=== PATIENT | male | born 1985 | race Hispanic/Latino ===

== ENCOUNTER 2020-05-15 16:11 | Emergency (ER) | payer OTHER ==
[~2020-05-15] VITALS: Ht 177.8 cm; Wt 88.9 kg
[2020-05-15] MEDS ORDERED: MAGNESIUM/ALUMINUM/SIMETHICONE 30 ML UDC PO ONE ×2 (16:45→18:00)
[2020-05-15] MEDS ORDERED: LIDOCAINE VISC 2% SOLN 15 ML UDC PO ONE ×3 (16:45→18:00)
[2020-05-15] MEDS ORDERED: BELLADONNA ALK/PHENOBARBITAL 5 ML UDC PO ONE ×2 (16:45→18:00)
--- NOTE | 2020-05-15 16:53 | Emergency Department Note ---
History of Present Illnes History of Present Illness Chief Complaint: Abdominal Complaints History of Present Illness This is a 34 year old male PATIENT IN FROM HOME WITH COMPLAINTS OF EPIGASTRIC PAIN AFTER EATING SPICY FOOD LAST NIGHT; STATES THAT HE TOOK A PROTONIX BUT IT WORE OFF QUICKLY; PATIENT STATES THAT THE SAME THING HAPPENED IN AUGUST WHEN HE WAS GIVEN THE RX FOR PROTONIX. HE WAS SEEN AT THE CLINIC THIS MORNING AND GIVEN AN RX FOR PEPCID, HE TOOK ONE DOSE AND IT HAS NOT HELPED YET. Historian: Patient Arrival Mode: Car Quality Audit Representative Required: Yes Onset (how long ago): hour(s) Location: [facility] ABD Quality: BURNING PAIN Radiation: Reports non-radiation Severity: moderate Onset quality: gradual Timing of current episode: constant Progression: unchanged Chronicity: recurrent Context: Denies recent illness Relieving factors: none Exacerbating factors: none Associated symptoms: Reports denies other symptoms (JAKE CHUNG MD) Historian: Patient, Family Member (DIALLO LEIGH DO) Past Medical/Family History Physician Review I have reviewed the patient's past medical and family history. Any updates have been documented here. (JAKE CHUNG MD) Past Medical History Recent Fever: No Clinical Suspicion of Infectio: No New/Unexplained Change in Ment: No Past Medical History: GERD Past Surgical History: None (JAKE CHUNG MD) Recent Fever: No Clinical Suspicion of Infectio: No New/Unexplained Change in Ment: No (DIALLO LEIGH DO) Social History Smoking Cessation: Never Smoker Alcohol Use: Social Any Illegal Drug Use: No TB Exposure/Symptoms: No Physically hurt or threatened: No (JAKE CHUNG MD) Family History Family history of heart diseas: No (JAKE CHUNG MD) Other Any Pre-Existing Lines (PICC,: No (JAKE CHUNG MD) Review of Systems Review of Systems Constitutional: Reports no symptoms EENTM: Reports no symptoms Cardiovascular: Reports no symptoms Respiratory: Reports no symptoms Gastrointestinal: Reports as per HPI, Reports abdominal pain Genitourinary: Reports no symptoms Musculoskeletal: Reports no symptoms Integumentary: Reports no symptoms Neurological: Reports no symptoms Psychological: Reports no symptoms Endocrine: Reports no symptoms Hematological/Lymphatic: Reports no symptoms (JAKE CHUNG MD) Physical Exam Related Data Allergies: Coded Allergies: No Known Allergies (Unverified , 05/15/20) Triage Vital Signs Vital Signs Date Time Temp Pulse Resp B/P (MAP) Pulse Ox O2 Delivery O2 Flow Rate FiO2 05/15/20 16:16 98.3 86 18 129/84 98 Room Air (JAKE CHUNG MD) Triage Vital Signs Vital Signs Date Time Temp Pulse Resp B/P (MAP) Pulse Ox O2 Delivery O2 Flow Rate FiO2 05/15/20 16:16 98.3 86 18 129/84 98 Room Air Vital signs reviewed: Yes (DIALLO LEIGH DO) Physical Exam CONSTITUTIONAL HENT EYES NECK PULMONARY CARDIOVASCULAR GASTROINTESTINAL GENITOURINARY SKIN MUSCULOSKELETAL NEUROLOGICAL PSYCHOLOGICAL (JAKE CHUNG MD) Constitutional: Present well-developed, Present well-nourished HENT: Present normocephalic, Present atraumatic, Present oropharynx clear/moist, Present nose normal HENT L/R: Present left ext ear normal, Present right ext ear normal Eyes: Reports PERRL, Reports conjunctivae normal Neck: Present ROM normal Pulmonary: Present effort normal, Present breath sounds normal Cardiovascular: Present regular rhythm, Present heart sounds normal, Present capillary refill normal, Present normal rate Abdominal: Present soft, Present tender (RLQ) Genitourinary: Present exam deferred Skin: Present warm, Present dry Musculoskeletal: Present ROM normal Neurological: Present alert, Present oriented x 3, Present no gross motor or sensory deficits Psychological: Present mood/affect normal, Present judgement normal (DIALLO LEIGH DO) Results Laboratory Lab results reviewed: Yes (DIALLO LEIGH DO) Imaging Imaging results reviewed: Yes Impressions [place] [id number] Patient Name: KRYS HERNANDEZ MR #: [id number] : 1985 Age/Sex: 34/M Req #: [id number] Adm Physician: Ordered by: DIALLO LEIGH DO Report #: [id number] Location: Room/Bed: Procedure: [id number] CT/CT ABDOMEN/PELVIS W Exam Date: Exam Time: REPORT STATUS: Signed EXAM: CT Abdomen and Pelvis WITH contrast INDICATION: Epigastric and right lower quadrant pain. COMPARISON: None. TECHNIQUE: Abdomen and pelvis were scanned utilizing a multidetector helical scanner from the lung base to the pubic symphysis after administration of IV contrast. Coronal and sagittal reformations were obtained. Routine protocol was performed. Scan was performed during portal venous phase. IV CONTRAST: 100 cc of Isovue 370 ORAL CONTRAST: None COMPLICATIONS: None RADIATION DOSE: Total DLP: 387.9 mGy*cm Estimated effective dose: (DLP x 0.015 x size factor) mSv CTDIvol has been reviewed. It is below the limits set by the Radiation Protocol Committee (RPC). FINDINGS: LINES and TUBES: None. LOWER THORAX: Unremarkable HEPATOBILIARY: No evidence of focal lesion. No biliary ductal dilation. GALLBLADDER: No radio-opaque stones or sludge. No wall thickening. SPLEEN: No splenomegaly. PANCREAS: No focal masses or ductal dilatation. ADRENALS: No adrenal nodules KIDNEYS/URETERS: Kidneys enhance symmetrically. No evidence of hydronephrosis, solid mass, or stone. GI TRACT: No evidence of bowel obstruction. Apparent mild wall thickening in jejunal loops. Appendix is normal. PELVIC ORGANS/BLADDER: Unremarkable. LYMPH NODES: No lymphadenopathy. VESSELS: Unremarkable. PERITONEUM / RETROPERITONEUM: No free air or fluid. Mild mesenteric stranding. BONES AND SOFT TISSUES: Unremarkable. CONCLUSION: Mild jejunal wall thickening, which may represent decompression versus enteritis, which may be infectious or inflammatory. There is mild stranding in the mesentery, which may be secondary to the jejunal inflammation versus mesenteric panniculitis. No evidence of lymphadenopathy. Recommend clinical correlation. Signed by: Dr. Valerie Rothman MD on 05/15/2020 6:30 PM Dictated By: VALERIE ROTHMAN MD 29 Transcribed By: CYNDY on 05/15/201829 COPY TO: DIALLO LEIGH DO~ (DIALLO LEIGH DO) Assessment & Plan Medical Decision Making MDM LIKELY GASTRITIS BUT TENDER IN [facility]/RUQ - CHECK CBC, CHEM, AMYLASE/LIPASE - R/O PANCREATITIS, ELEVATED LFT'S TO SUGGEST CHOLECYSTITIS/CHOLEDOCHOLITHIASIS, ELECTROLYTE ABNL (JAKE CHUNG MD) MDM Diff Dx : pancreatitis, gallbladder pathology, perforated viscus, ACS, and appendicitis (DIALLO LEIGH DO) Reassessment Reassessment GI COCKTAIL, IVF'S, IV PROTONIX GIVEN, LABS PENDING - REPORT TO ONCOMING ER Jovita BARNETT TO F/U AND DISPO (JAKE CHUNG MD) Assessment & Plan Final Impression: (1) Abdominal pain (JAKE CHUNG MD) Depart Disposition: HOME, SELF-CARE Last Vital Signs Date Time Temp Pulse Resp B/P (MAP) Pulse Ox O2 Delivery O2 Flow Rate FiO2 05/15/20 16:16 98.3 86 18 129/84 98 Room Air (JAKE CHUNG MD) Medications in the ED Magnesium Aluminum Silicate 30 ml ONCE ONCE PO ; Start 05/15/20 at 16:45; Stop 05/15/20 at 16:46; Status UNV Belladonna Alkaloids/ Phenobarbital 10 ml ONCE ONCE PO ; Start 05/15/20 at 16:45; Stop 05/15/20 at 16:46; Status UNV Lidocaine HCl 10 ml ONCE ONCE PO ; Start 05/15/20 at 16:45; Stop 05/15/20 at 16:46; Status UNV Magnesium Aluminum Silicate 10 ml ONCE ONCE PO ; Start 05/15/20 at 17:30; Stop 05/15/20 at 17:31 (JAKE CHUNG MD) JAKE CHUNG MD May 15, 2020 16:53 DIALLO LEIGH DO May 15, 2020 17:54
[2020-05-15] MEDS ORDERED: PANTOPRAZOLE 40 MG 10ML VIAL IV STA (17:18)
[2020-05-15] MEDS ORDERED: ONDANSETRON HCL INJ 2MG/ML 2ML 2 MG/ML VIAL IV STA (17:18)
[2020-05-15] MEDS ORDERED: SODIUM CHLORIDE 0.9% 1000ML 1,000 ML IV STA (17:18)
[2020-05-15] MEDS ORDERED: MAALOX/LIDOCAINE/BENADRYL/NYST 30 ML BTL PO ONE (17:30)
[2020-05-15 17:36] LABS: BASOPHILS % 0.2 % (0.0-1.0); EOSINOPHILS % 0.1 % (0.0-6.0); HEMATOCRIT 43.7 % (38.2-49.6); HEMOGLOBIN 14.4 g/dL (14.0-18.0); LYMPHOCYTES # (AUTO) 1.2 (1.0-3.2); LYMPHOCYTES % 8.5 % (18.0-39.1); MEAN CORPUSCULAR HEMOGLOBIN 28.2 pg (28-32); MEAN CORPUSCULAR VOLUME 85.5 fL (81-99); MONOCYTES # (AUTO) 0.9 (0.2-0.8); MONOCYTES % 6.8 % (4.4-11.3); NEUTROPHILS # (AUTO) 11.6 (2.1-6.9); NEUTROPHILS % 83.9 % (38.7-80.0); PLATELET COUNT 243 x10e3/uL (140-360); RED BLOOD COUNT 5.11 x10e6/uL (4.3-5.7)
[2020-05-15 17:47] LABS: INR 0.98; PROTHROMBIN TIME 13.5 seconds (11.9-14.5)
[2020-05-15 17:48] LABS: PARTIAL THROMBOPLASTIN TIME 29.1 seconds (23.8-35.5)
[2020-05-15 17:56] LABS: ALANINE AMINOTRANSFERASE 61 IU/L (0-55); ALBUMIN 4.8 g/dL (3.5-5.0); ALBUMIN/GLOBULIN RATIO 1.4 (0.8-2.0); ALKALINE PHOSPHATASE 83 IU/L (40-150); AMYLASE 49 U/L (25-125); ANION GAP 13.9 mmol/L (8-16); BLOOD UREA NITROGEN 12 mg/dL (7-26); BUN/CREATININE RATIO 12 (6-25); CALCIUM 9.6 mg/dL (8.4-10.2); CARBON DIOXIDE 27 mmol/L (22-29); CHLORIDE 102 mmol/L (98-107); CREATINE KINASE 80 IU/L (30-200); CREATININE, SERUM 1.01 mg/dL (0.72-1.25); EST GLOMERULAR FILTRATION RATE > 60 ML/MIN (60-); GLUCOSE 102 mg/dL (74-118); LIPASE 10 U/L (8-78); POTASSIUM 3.9 mmol/L (3.5-5.1); SODIUM 139 mmol/L (136-145)
--- NOTE | 2020-05-15 18:02 | NUR ---
Pt to CT scan.
[2020-05-15] MEDS ORDERED: MORPHINE SULFATE INJ 4 MG/ML INJ 1ML IV STA (18:29)
--- NOTE | 2020-05-15 18:33 | Diagnostic Imaging Report ---
EXAM: CT Abdomen and Pelvis WITH contrast INDICATION: Epigastric and right lower quadrant pain. COMPARISON: None. TECHNIQUE: Abdomen and pelvis were scanned utilizing a multidetector helical scanner from the lung base to the pubic symphysis after administration of IV contrast. Coronal and sagittal reformations were obtained. Routine protocol was performed. Scan was performed during portal venous phase. IV CONTRAST: 100 cc of Isovue 370 ORAL CONTRAST: None COMPLICATIONS: None RADIATION DOSE: Total DLP: 387.9 mGy*cm Estimated effective dose: (DLP x 0.015 x size factor) mSv CTDIvol has been reviewed. It is below the limits set by the Radiation Protocol Committee (RPC). FINDINGS: LINES and TUBES: None. LOWER THORAX: Unremarkable HEPATOBILIARY: No evidence of focal lesion. No biliary ductal dilation. GALLBLADDER: No radio-opaque stones or sludge. No wall thickening. SPLEEN: No splenomegaly. PANCREAS: No focal masses or ductal dilatation. ADRENALS: No adrenal nodules KIDNEYS/URETERS: Kidneys enhance symmetrically. No evidence of hydronephrosis, solid mass, or stone. GI TRACT: No evidence of bowel obstruction. Apparent mild wall thickening in jejunal loops. Appendix is normal. PELVIC ORGANS/BLADDER: Unremarkable. LYMPH NODES: No lymphadenopathy. VESSELS: Unremarkable. PERITONEUM / RETROPERITONEUM: No free air or fluid. Mild mesenteric stranding. BONES AND SOFT TISSUES: Unremarkable. CONCLUSION: Mild jejunal wall thickening, which may represent decompression versus enteritis, which may be infectious or inflammatory. There is mild stranding in the mesentery, which may be secondary to the jejunal inflammation versus mesenteric panniculitis. No evidence of lymphadenopathy. Recommend clinical correlation. Signed by: Dr. Eugene You MD on 05/15/2020 6:30 PM
[2020-05-15] MEDS ORDERED: SODIUM CHLORIDE 0.9% 50ML 50 ML ONE (18:44)
[2020-05-15] MEDS ORDERED: IOPAMIDOL 370 MG/ML 200 ML INFUS..BTL INJ ONE (18:45)
[2020-05-15 18:55] LABS: BILIRUBIN,URINE NEGATIVE (NEGATIVE); CLARITY,URINE HAZY (CLEAR); COLOR,URINE YELLOW (YELLOW); KETONES,URINE NEGATIVE (NEGATIVE); LEUKOCYTE ESTERASE ,URINE NEGATIVE (NEGATIVE); NITRITE,URINE NEGATIVE (NEGATIVE); PROTEIN,URINE DIPSTICK NEGATIVE (NEGATIVE); URINE UROBILINOGEN 0.2 mg/dL (0.2 - 1)
[2020-05-15 18:56] LABS: BACTERIA,URINE FEW /HPF; EPITHELIAL CELLS,URINE FEW /LPF; RBC,URINE 0-5 /HPF (0-5)
[2020-05-15 19:06] VITALS: BP 130/78
--- OUTSIDE RECORDS SUMMARY | 2020-05-16 16:43 | XMS REPORT | Clinical Summary ---
Author Author [facility] Address Unknown Phone Unavailable Care Team Providers Care Felt Carbonizer Name Role Phone PCP Unavailable Allergies Not on File Medications Not on file Active Problems Not on file Social History Date Tobacco Use Types Packs/Day Years Used Never Assessed Sex Assigned at Date Recorded Not on file Industry Job Start Date Occupation Not on file Not on file Not on file Travel End Travel History Travel Start No recent travel history available. Last Filed Vital Signs Not on file Plan of Treatment Not on file Results Not on fileafter 05/15/2019 Insurance Payer Benefit Subscriber ID Type Phone Address Plan / Group [facility] H[facility]/PO S CARE POS SELECT CHOICE
--- OUTSIDE RECORDS SUMMARY | 2020-05-16 16:44 | XMS REPORT | Continuity of Care Document ---
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 Social History Social Habit Start Date Stop Date Quantity Comments Source Sex Assigned At [facility] Medications This patient has no known medications. Vital Signs Vital Name Observation Time Observation Value Comments Source Weight 2020-05-15 16:16:00 196 [lb_av] [facility] BMI (Body Mass Index) 2020-05-15 16:16:00 28.1 kg/m2 [facility] Procedures Procedure Date / Time Performed Performing Clinician Sourc e Computed tomography of abdomen and pelvis with contrast 00:00:00 [facility] Plan of Care Planned Activity Planned Date Details Comments Source Instructions Abdominal Pain - Adult [facility] Encounters Start Date/Time End Date/Time Encounter Type Admission Type Attendi [facility] Facility Care Department Encounter ID Source 2020-05-15 16:45:00 2020-05-15 19:15:00 Departed Emergency Room 1 DIALLO LEIGH [facility] [id number] [facility] 2019-03-27 15:50:36 2019-03-27 16:37:39 Office Visit Darrian Cardona [facility] [id number] Results Test Description Test Time Test Comments Results Result Comments Source CT ABDOMEN/PELVIS W 2020-05-15 18:23:00 [place] [address] Patient Name: KRYS HERNANDEZ MR #: [id number] : 1985 Age/Sex: 34/M Req #: [id number] Adm Physician: Ordered by: DIALLO LEIGH DO Report #: [id number] Location: ER Room/Bed: Procedure: [id number] CT/CT ABDOMEN/PELVIS W Exam Date: Exam Time: REPORT STATUS: Signed EXAM: CT Abdomen and Pelvis WITH contrast INDICATION: Epigastric and right lower quadrant pain. COMPARISON: None. TECHNIQUE: Abdomen and pelvis were scanned utilizing a multidetector helical scanner from the lung base to the pubic symphysis after administration of IV contrast. Coronal and sagittal reformations were obtained. Routine protocol was performed. Scan was performed during portal venous phase. IV CONTRAST: 100 cc of Isovue 370 ORAL CONTRAST: None COMPLICATIONS: None RADIATION DOSE: Total DLP: 387.9 mGy*cm Estimated effective dose: (DLP x 0.015 x size factor) mSv CTDIvol has been reviewed. It is below the limits set by the Radiation Protocol Committee (RPC). FINDINGS: LINES and TUBES: None. LOWER THORAX: Unremarkable HEPATOBILIARY: No evidence of focal lesion. No biliary ductal dilation. GALLBLADDER: No radio-opaque stones or sludge. No wall thickening. SPLEEN: No splenomegaly. PANCREAS: No focal masses or ductal dilatation. ADRENALS: No adrenal nodules KIDNEYS/URETERS: Kidneys enhance symmetrically. No evidence of hydronephrosis, solid mass, or stone. GI TRACT: No evidence of bowel obstruction. Apparent mild wall thickening in j ejunal loops. Appendix is normal. PELVIC ORGANS/BLADDER: Unremarkable. LYMPH NODES: No lymphadenopathy. VESSELS: Unremarkable. PERITONEUM / RETROPERITONEUM: No free air or fluid. Mild mesenteric stranding. BONES AND SOFT TISSUES: Unremarkable. CONCLUSION: Mild jejunal wall thickening, which may represent decompression versus enteritis, which may be infectious or inflammatory. There is mild stranding in the mesentery, which may be secondary to the jejunal inflammation versus mesenteric panniculitis. No evidence of lymphadenopathy. Recommend clinical correlation. Signed by: Dr. Valerie Rothman MD on 05/15/2020 6:30 PM Dictated By: VALERIE ROTHMAN MD 29 Transcribed By: CYNDY on 05/15/201829 COPY TO: DIALLO LEIGH DO Blood leukocytes automated count (number/volume) 2020-05-15 16:30:00 Test Item White Blood Count (test code = 6690-2) 13.85 4.8-10.8 [facility] count (number/volume)2020-05-15 16:30:00* Test Item Value Reference Range Interpretation Comments Red Blood Count (test code = 789-8) 5.11 4.3-5.7 [facility] hemoglobin measurement (moles/volume)2020-05-15 16:30:00* Test Item Value Reference Range Interpretation Comments Hemoglobin (test code = 43485-3) 14.4 14.0-18.0 [facility] blood hematocrit (volume fraction)2020-05-15 16:30:00* Test Item Value Reference Range Interpretation Comments Hematocrit (test code = 4544-3) 43.7 38.2-49.6 [facility] erythrocyte mean corpuscular jhcaey2642-27-50 16:30:00* Test Item Value Reference Range Interpretation Comments Mean Corpuscular Volume (test code = 787-2) 85.5 81-99 [facility] eryth[facility] mean corpuscular hemoglobin (mass per erythrocyte)2020-05-15 16:30:00* Test Item Value Reference Range Interpretation Comments Mean Corpuscular Hemoglobin (test code = 785-6) 28.2 28-32 [facility] erythrocyte mean corpuscular hemoglobin concentration measurement (mass/volume)2020-05-15 16:30:00* Test Item Value Reference Range Interpretation Comments Mean Corpuscular Hemoglobin Concent (test code = 786-4) 33.0 31-35 [facility] SystemRDW UwxVa-Srk8845-63-26 16:30:00* Test Item Value Reference Range Interpretation Comments Red Cell Distribution Width (test code = 33167-4) 12.0 11.7 -14.4 [facility] System[facility] blood platelet count (count/volume)2020-05-15 16:30:00* Test Item Value Reference Range Interpretation Comments Platelet Count (test code = 777-3) 243 140-360 [facility] System[facility] blood segmented neutrophil count as percentage of total sufcevatrf1269-23-28 16:30:00* Test Item Value Reference Range Interpretation Comments Neutrophils (%) (Auto) (test code = 70503-6) 83.9 38.7-80.0 [facility] System[facility] lymphocyte count as percentage ot total fuleuuhxwi7150-05-01 16:30:00* Test Item Value Reference Range Interpretation Comments Lymphocytes (%) (Auto) (test code = 736-9) 8.5 18.0-39.1 [facility] System[facility] blood monocyte count as percentage of total bselhqnsqi8972-95-85 16:30:00* Test Item Value Reference Range Interpretation Comments Monocytes (%) (Auto) (test code = 5905-5) 6.8 4.4-11.3 [facility] System[facility] blood eosinophil count as percentage of total detxncrroq6794-09-02 16:30:00* Test Item Value Reference Range Interpretation Comments Eosinophils (%) (Auto) (test code = 713-8) 0.1 0.0-6.0 [facility] System[facility] blood basophil count as percentage of total ztbdrupwuk5850-22-70 16:30:00* Test Item Value Reference Range Interpretation Comments Basophils (%) (Auto) (test code = 706-2) 0.2 0.0-1.0 [facility] SystemFluoroscopic procedure less than one hour gggbjmsb6928-64-12 16:30:00* Test Item Value Reference Range Interpretation Comments IM GRANULOCYTES % (test code = IM GRANULOCYTES %) 0.5 0.0- 1.0 [facility] System[facility] blood neutrophil count 2020-05-15 16:30:00* Test Item Value Reference Range Interpretation Comments Neutrophils # (Auto) (test code = 751-8) 11.6 2.1-6.9 [facility] lymphocytes count (number/volume) 2020-05-15 16:30:00* Test Item Value Reference Range Interpretation Comments Lymphocytes # (Auto) (test code = 91261-8) 1.2 1.0-3.2 [facility] monocytes automated count (number/volume)2020-05-15 16:30:00* Test Item Value Reference Range Interpretation Comments Monocytes # (Auto) (test code = 742-7) 0.9 0.2-0.8 [facility] System[facility] blood eosinophil count 2020-05-15 16:30:00* Test Item Value Reference Range Interpretation Comments Eosinophils # (Auto) (test code = 711-2) 0.0 0.0-0.4 [facility] SystemAutom[facility] blood basophil count (count/volume)2020-05-15 16:30:00* Test Item Value Reference Range Interpretation Comments Basophils # (Auto) (test code = 704-7) 0.0 0.0-0.1 [facility] SystemFluoroscopic procedure less than one hour gfbovndn1671-97-94 16:30:00* Test Item Value Reference Range Interpretation Comments Absolute Immature Granulocyte (auto (jemima t code = Absolute Immature Granulocyte (auto) 0.07 0-0.1 [facility] SystemProthrombin time (PT) in platelet poor plasma by coagulation gabqx7699-88-87 16:30:00* Test Item Value Reference Range Interpretation Comments Prothrombin Time (test code = 5902-2) 13.5 11.9-14.5 [facility] SystemINR in Platelet poor plasma by Coagulation ejyof1021-10-82 16:30:00* Test Item Value Reference Range Interpretation Comments Prothromb Time International Ratio (test code = 6301-6) 0.98 Oral Anticoagulant Therapy INR Values:1. Low Intensity Therapy 1.5 - 2.02 . Moderate Intensity Therapy 2.0 - 3.03. High Intensity Therapy(1) 2.5 - 3. 54. High Intensity Therapy(2) 3.0 - 4.05. Panic Value INR > 5.0 [facility] SystemActivated partial thromboplastin time (aPTT) in platelet poor plasma by coagulation ogaqt6301-47-30 16:30:00* Test Item Value Reference Range Interpretation Comments Activated Partial Thromboplast Time (test code = 62307-8) 29.1 23.8-35.5 [facility] SystemU[facility] color hdpezuzykbtkz4932-01-08 16:30:00* Test Item Value Reference Range Interpretation Comments Urine Color (test code = 5778-6) YELLOW YELLOW [facility] SystemUrine onrvuxl5996-01-61 16:30:00* Test Item Value Reference Range Interpretation Comments Urine Clarity (test code = 13220-1) HAZY CLEAR [facility] Urine by Test strip 2020-05-15 16:30:00* Test Item Value Reference Range Interpretation Comments Urine Specific [place] (test code = 5811-5) >=1.030 1.010-1.02 5 [facility] System[facility] pH measurement by automated test ytdio7129-43-14 16:30:00* Test Item Value Reference Range Interpretation Comments Urine pH (test code = 71152-6) 5.5 5-7 [facility] SystemU[facility] leukocyte esterase detection by rsirvwdk5978-11-82 16:30:00* Test Item Value Reference Range Interpretation Comments Urine Leukocyte Esterase (test code = 5799-2) NEGATIVE NEGATIVE [facility] nitrite mcezwwlxx0666-08-55 16:30:00* Test Item Value Reference Range Interpretation Comments Urine Nitrite (test code = 34263-2) NEGATIVE NEGATIVE [facility] protein measurement by test strip (mass/volume)2020-05-15 16:30:00* Test Item Value Reference Range Interpretation Comments Urine Protein (test code = 5804-0) NEGATIVE NEGATIVE [facility] glucose gbftguadb9090-68-36 16:30:00* Test Item Value Reference Range Interpretation Comments Urine Glucose (UA) (test code = 2349-9) NEGATIVE NEGATIVE [facility] System[facility] ketones detection by automated test gttwy1977-96-94 16:30:00* Test Item Value Reference Range Interpretation Comments Urine Ketones (test code = 87602-0) NEGATIVE NEGATIVE [facility] SystemU[facility] urobilinogen measurement by test strip (mass/volume)2020-05-15 16:30:00* Test Item Value Reference Range Interpretation Comments Urine Urobilinogen (test code = 10557-6) 0.2 0.2-1 [facility] total bilirubin measurement (mass/volume)2020-05-15 16:30:00* Test Item Value Reference Range Interpretation Comments Urine Bilirubin (test code = 1978-6) NEGATIVE NEGATIVE [facility] SystemU[facility] erythrocytes usrfpysza6367-44-08 16:30:00* Test Item Value Reference Range Interpretation Comments Urine Blood (test code = 70057-1) NEGATIVE NEGATIVE [facility] SystemAutomated urine sediment leukocyte count by microscopy (number/high power field)2020-05-15 16:30:00* Test Item Value Reference Range Interpretation Comments Urine WBC (test code = 5821-4) 6-10 0-5 [facility] SystemErythrocytes detection in urine sediment by light qktcmswdhn3720-01-27 16:30:00* Test Item Value Reference Range Interpretation Comments Urine RBC (test code = 24816-5) 0-5 0-5 [facility] SystemBacteria detection in urine sediment by light iiokskyusj3891-72-67 16:30:00* Test Item Value Reference Range Interpretation Comments Urine Bacteria (test code = 67496-6) FEW NONE [facility] SystemEpithelial cells detection in urine sediment by light ninfahfkfh4466-52-68 16:30:00* Test Item Value Reference Range Interpretation Comments Urine Epithelial Cells (test code = 99429-6) FEW NONE [facility] or plasma sodium measurement (moles/volume)2020-05-15 16:30:00* Test Item Value Reference Range Interpretation Comments Sodium Level (test code = 2951-2) 139 136-145 [facility] Campuserum or plasma potassium measurement (moles/volume)2020-05-15 16:30:00* Test Item Value Reference Range Interpretation Comments Potassium Level (test code = 2823-3) 3.9 3.5-5.1 [facility] or plasma chloride measurement (moles/volume)2020-05-15 16:30:00* Test Item Value Reference Range Interpretation Comments Chloride Level (test code = 2075-0) 102 98-107 [facility]um or plasma carbon dioxide, total measurement (moles/volume)2020-05-15 16:30:00* Test Item Value Reference Range Interpretation Comments Carbon Dioxide Level (test code = 2028-9) 27 22-29 [facility] or plasma anion znp2647-97-01 16:30:00* Test Item Value Reference Range Interpretation Comments Anion Gap (test code = 51566-0) 13.9 8-16 [facility] or plasma urea nitrogen measurement (mass/volume)2020-05-15 16:30:00* Test Item Value Reference Range Interpretation Comments Blood Urea Nitrogen (test code = 3094-0) 12 7-26 [facility] or plasma creatinine measurement (mass/volume)2020-05-15 16:30:00* Test Item Value Reference Range Interpretation Comments Creatinine (test code = 2160-0) 1.01 0.72-1.25 [facility] or plasma urea nitrogen/creatinine mass gsyzg4749-92-70 16:30:00* Test Item Value Reference Range Interpretation Comments BUN/Creatinine Ratio (test code = 3097-3) 12 6-25 [facility] SystemEstimated glomerular filtration rate (GFR) vhljjvaacfswx2529-67-63 16:30:00* Test Item Value Reference Range Interpretation Comments Estimat Glomerular Filtration Rate (test code = 703973166) > 60 >60 Ranges were taken from the National Kidney Disease Education Program and the [employer] [facility] [employer] literature.Reference ranges:60 or greater: Gnibwg75-60 ( for 3 consecutive months): Chronic kidney disease 15 or less: Kidney failureDeTar Healthcare SystemGlucose cdazxooxlgc6823-00-82 16:30:00* Test Item Value Reference Range Interpretation Comments Glucose Level (test code = PNY3673) 102 74-118 [facility] or plasma calcium measurement (mass/volume)2020-05-15 16:30:00* Test Item Value Reference Range Interpretation Comments Calcium Level (test code = 81975-9) 9.6 8.4-10.2 [facility] or plasma total bilirubin measurement (mass/volume)2020-05-15 16:30:00* Test Item Value Reference Range Interpretation Comments Total Bilirubin (test code = 1975-2) 1.0 0.2-1.2 [facility] SystemFluoroscopic procedure less than one hour awsvjhmj3594-54-72 16:30:00* Test Item Value Reference Range Interpretation Comments Aspartate Amino Transf (AST/SGOT) (test code = Aspartate Amino Transf (AST/SGOT)) 23 5-34 [facility] or plasma alanine aminotransferase measurement (enzymatic activity/volume)2020-05-15 16:30:00* Test Item Value Reference Range Interpretation Comments Alanine Aminotransferase (ALT/SGPT) (test code = 1742-6) 61 0-55 [facility] or plasma protein measurement (mass/volume)2020-05-15 16:30:00* Test Item Value Reference Range Interpretation Comments Total Protein (test code = 2885-2) 8.2 6.5-8.1 [facility] or plasma albumin measurement (mass/volume)2020-05-15 16:30:00* Test Item Value Reference Range Interpretation Comments Albumin (test code = 1751-7) 4.8 3.5-5.0 [facility] SystemPlasma globulin measurement (mass/volume) 2020-05-15 16:30:00* Test Item Value Reference Range Interpretation Comments Globulin (test code = 59063-4) 3.4 2.3-3.5 [facility] or plasma albumin/globulin mass reuco2974-89-86 16:30:00* Test Item Value Reference Range Interpretation Comments Albumin/Globulin Ratio (test code = 1759-0) 1.4 0.8-2.0 [facility] or plasma alkaline phosphatase measurement (enzymatic activity/volume)2020-05-15 16:30:00* Test Item Value Reference Range Interpretation Comments Alkaline Phosphatase (test code = 6768-6) 83 40-150 [facility] or plasma creatine kinase measurement (enzymatic activity/volume)2020-05-15 16:30:00* Test Item Value Reference Range Interpretation Comments Creatine Kinase (test code = 2157-6) 80 30-200 [facility] or plasma creatine kinase MB measurement (mass/volume)2020-05-15 16:30:00* Test Item Value Reference Range Interpretation Comments Creatine Kinase MB (test code = 66429-4) 0.60 0-5.0 [facility] SystemTroponin I measurement by highly sensitive enzyme qyayxzxawgm8870-63-59 16:30:00* Test Item Value Reference Range Interpretation Comments Troponin I (test code = 38865-6) 0.002 0-0.300 [facility] or plasma amylase measurement (enzymatic activity/volume)2020-05-15 16:30:00* Test Item Value Reference Range Interpretation Comments Amylase Level (test code = 1798-8) 49 25-125 [facility] or plasma lipase measurement (enzymatic activity/volume)2020-05-15 16:30:00* Test Item Value Reference Range Interpretation Comments Lipase (test code = 3040-3) 10 8-78 [facility]
== END 2020-05-15 19:15 | disposition home or self-care (01) ==
LOC: ER 16:45
DX: R10.13 Epigastric pain (principal); K21.9 Gastro-esophageal reflux disease without esophagitis
CPT/HCPCS: 36415; 74177; 80053; 81001; 82150; 82550; 82553; 83690; 84484; 85025; 85610; 85730; 99283; C9113; J2270; J2405; J7030; Q9967